=== PATIENT | female | born 2000 | race Caucasian/White ===

== ENCOUNTER 2021-08-25 16:15 | Emergency (ER) | payer OTHER, SELFPAY ==
[2021-08-25 16:22] VITALS: BP 127/80; PULSE 108; RESP 16; TEMP 36.7; O2SAT 98
--- NOTE | 2021-08-25 16:46 | ED.FEMALEGU ---
HPI - Female Genitourinary General Chief complaint: Urogenital-Female Stated complaint: UTI SYMPTOMS Time Seen by Provider: 08/25/21 16:38 Source: patient and RN notes reviewed Mode of arrival: ambulatory Limitations: no limitations History of Present Illness HPI Narrative: 21-year-old female presents to the [facility] with complaints of burning, frequency and low back pain. Patient states symptoms started Tuesday. Has been drinking cranberry juice and taking Tylenol. No relief. Denies fevers. Denies abdominal pain or chest pain MD elicited complaint: UTI Related Data Allergies Allergy/AdvReac Type Severity Reaction Status Date / Time kiwi Allergy Mild Unknown Verified 06/25/21 09:31 codeine Allergy Unknown Unknown Verified 06/25/21 09:31 Review of Systems Review of Systems: All systems reviewed & are unremarkable except as noted in HPI and below Constitutional: Constitutional: Reports no additional constitutional complaints Eyes: Eyes: Reports no additional eye complaints ENT: Reports system reviewed and no additional complaints, except as documented Cardiovascular: Cardiovascular: Reports no additional cardiovascular complaints Respiratory: Respiratory: Reports no additional respiratory complaints Gastrointestinal: Gastrointestinal: Reports no additional gastrointestinal complaints, Denies abdominal pain, Denies nausea and Denies vomiting Genitourinary: Genitourinary: Reports as per HPI, Reports dysuria and Denies urinary incontinence Musculoskeletal: Musculoskeletal: Reports no additional musculoskeletal complaints Integumentary/Breasts: Skin/Breast: Reports system reviewed and no additional complaints, except as docu Neurologic: Reports system reviewed and no additional complaints, except as documented Psychiatric: Psychiatric: Reports no additional psychiatric complaints Allergic/Immunologic: Allergic/Immunologic: Reports no additional allergic/immunologic complaints [facility] Past Medical History Medical History BMI 34.0-34.9,adult Family History Family History Other Carcinoma of colon Family history of coronary artery disease Hypertension Social History Social History Smoking status: Never smoker Alcohol intake: never Substance use: never Substance use type: does not use Additional living arrangements comments: parents Additional occupation/education comments: [employer] Gender identity (if verbalized by the patient): Female Spiritual care concerns: No Agree to blood products: Yes Comments At the time of my signature, I reviewed and agree with the nursing past medical, surgical, social, and family history. There is no relevant family history pertinent to the patient complaint. Exam Const: General: healthy appearing, no acute distress and alert Nutritional Appearance: well nourished Orientation/consciousness: patient oriented x3 Limitations: no limitations HENMT: Head: normal to inspection Ears: external ears normal Eyes: Pupils: Equal, round and reactive pupils present Neck: Neck: normal visual inspection, no lymphadenopathy and no meningeal signs Chest: Chest palpation & inspection: normal inspection of the chest Resp: Effort & Inspection: normal respiratory effort Auscultation: clear to auscultation bilaterally Cardio: Rate: regular rate Rhythm: regular rhythm GI: GI Palp: Yes Soft to palpation and No Tenderness to palpation present (GI) : General: Yes no CVA tenderness Back/Spine/Pelvis: Back: no CVA tenderness Skin: General skin exam: normal color Rashes: no rashes Wounds: no wounds Neuro: General: patient oriented x3, moves all extremities, no meningeal signs and no focal motor deficits Speech: normal speech Gait exam (Neuro): Normal gait present Extrem: General: normal to inspection
== END 2021-08-25 16:54 | disposition home or self-care (01) ==
PROVIDERS: Emergency Provider Nurse Practitioner; PCP Family Medicine
DX: N30.01 Acute cystitis with hematuria (principal)
CPT/HCPCS: 81003; 87077; 87086; 87088; 87186; 99213; G0463

== ENCOUNTER 2021-12-25 08:01 | Observation (INO) | payer OTHER, SELFPAY ==
[2021-12-25] VITALS (10 sets, daily range): BP systolic 106–142; BP diastolic 60–93; PULSE 87–127; RESP 12–21; TEMP 36.3–38.1; O2SAT 93–100; BMI 38.8
--- NOTE | ~2021-12-25 | XR_ITS ---
EXAMINATION: XR chest 2V EXAM DATE: 12/25/2021 08:38 INDICATION: midsternal chest pain, shortness of breath . TECHNIQUE: Frontal and lateral projections of the chest obtained and reviewed. There is no prior rehana dy for comparison. FINDINGS: The lungs are clear. There are no pleural effusions. The cardiomediastinal silhouette is within normal limits. There is no pneumothorax suspected. The bones and soft tissues are unremarkab le. IMPRESSION: No acute cardiopulmonary findings. Reviewed, dictated and finalized at location D.
--- NOTE | ~2021-12-25 | CT_ITS ---
EXAMINATION: CT abdomen pelvis wo con EXAM DATE: 12/25/2021 12:58 INDICATION: Abdominal pain. TECHNIQUE: Spiral CT of the abdomen and pelvis was performed without contrast. Axial, coronal and s agittal images of the abdomen and pelvis were reviewed. The dose-length product (DLP) for this exami nation was 1337.82 mGy-cm. The exposure was tailored according to patient size (auto mA exposure con trol), and iterative reconstruction (ASIR) was used as additional dose reduction technique. Correlati on is made to CT pulmonary scan earlier same date FINDINGS: The liver, spleen, adrenal glands and pancreas are unremarkable. Small calcified cholelith iasis, gallbladder otherwise unremarkable. No hydronephrosis. The uterus is unremarkable. The mick dder is distended but otherwise unremarkable. There is no retroperitoneal or pelvic lymphadenopathy. There are no findings to suggest appendicitis. The stomach and small bowel are unremarkable. There is expected amount of colonic stool. No free intraperitoneal gas. The heart is normal in size. T here are no pericardial or pleural effusions. The lung bases are unremarkable. The bones are unrema rkable. IMPRESSION: 1. No acute intra-abdominal findings. 2. Cholelithiasis. Reviewed, dictated and finalized at location B.
--- NOTE | ~2021-12-25 | US_ITS ---
EXAMINATION: US abdomen limited DATE: 12/25/2021 17:14 INDICATION: Right upper quadrant abdominal pain. TECHNIQUE: Multiple grayscale and Doppler ultrasound images of the abdomen were obtained. COMPARISON: CT abdomen and pelvis 12/25/2021 FINDINGS: The visualized portions of the head and body of the pancreas are normal. The liver is kemal l without focal lesion. There is normal flow in main portal vein. The gallbladder is normal in size a nd contains gallstones. No gallbladder wall thickening or sonographic Adams sign. The common duct is normal and measures 4 mm. IMPRESSION: 1. Cholelithiasis. No evidence of acute cholecystitis. Reviewed, dictated and finalized at location A.
--- NOTE | ~2021-12-25 | CT_ITS ---
EXAMINATION: CTA chest PE protocol EXAM DATE: 12/25/2021 11:18 INDICATION: Chest pain and dyspnea. TECHNIQUE: Spiral CTA of the chest (pulmonary arteries) was performed with 100 cc Omnipaque 350 intr avenous contrast injection. Images were acquired during the pulmonary arterial phase. Coronal maxi mum intensity projection 3D-reconstructions were created by the technologist on dedicated workstation . Axial, coronal and sagittal reformatted images were reviewed. The dose-length product (DLP) for t his examination was 590.82 mGy-cm. The exposure was tailored according to patient size (auto mA exp osure control), and iterative reconstruction (ASIR) was used as additional dose reduction technique. Correlation is made to chest x-ray same date. FINDINGS: Pulmonary arteries are well opacified and without intraluminal filling defects. No thora cic aortic dissection. Several small regions of subsegmental atelectasis. There are no pleural or p ericardial effusions. Tracheobronchial tree is patent. There is no mediastinal, hilar or axillary lymphadenopathy. There is no pneumothorax. Heart normal in size. No evidence of coronary arter ial calcification. Cholelithiasis, gallbladder otherwise unremarkable. The bones are unremarkable. IMPRESSION: 1. Some scattered opacities, appearance most consistent with subsegmental atelectasis. 2. No pulmonary emboli. 3. Cholelithiasis. Reviewed, dictated and finalized at location B. IMPRESSION: 1. Some scattered opacities, appearance most consistent with subsegmental atel ectasis. 2. No pulmonary emboli. 3. Cholelithiasis.
--- NOTE | 2021-12-25 08:08 | ECG_ITS ---
Measurements Intervals [place] Rate: 122 P: 52 MA: 174 QRS: 50 QRSD: 88 T: 32 QT: 308 QTc: 439 Interpretive Statements SINUS TACHYCARDIA NONSPECIFIC ST ABNORMALITY BORDERLINE ECG ECG NO PREVIOUS ECG AVAILABLE FOR COMPARISON Electronically Signed On 12-25-2021 17:14:17 CDT by Andrey Singh M.D.
--- NOTE | 2021-12-25 08:40 | ED.GENADULT ---
HPI - General Adult General Chief complaint: Chest Pain Stated complaint: dyspnea, chest pain Time Seen by Provider: 12/25/21 08:35 Source: RN notes reviewed History of Present Illness HPI narrative: Patient presents emergency department from home for chest pain. Patient states symptoms began upon waking this morning pain is located the midsternal chest and does not radiate described as a pressure associated with shortness of breath. She states that she does notice some mild feeling of lightheadedness with the symptoms she states nothing makes the pain better or worse she denies any fevers or chills cough, abdominal pain nausea vomiting or any other symptoms. Patient states she was recently on Macrobid for a urinary tract infection Related Data Home Medications Medication Instructions Recorded Confirmed norethindrone-e.estradiol-iron tablet 12/25/21 12/25/21 [Yolanda Fe 10/15 (28)] Allergies Allergy/AdvReac Type Severity Reaction Status Date / Time kiwi Allergy Mild Unknown Verified 12/25/21 16:49 codeine Allergy Unknown Unknown Verified 12/25/21 16:49 Review of Systems Review of Systems: Gen.: Denies fevers or chills ENT: Denies congestion Respiratory: Reports shortness of breath CV: Reports chest pain GI: Denies abdominal pain nausea, emesis or diarrhea Musculoskeletal: Denies back pain or muscle pain Neuro: Denies numbness, tingling, weakness or focal weakness Skin: Denies rash Except as documented, all other systems reviewed and negative [facility] Past Medical History Medical History (Updated 12/25/21 @ 17:49 by Bird Cedeño DO) Anxiety and depression BMI 34.0-34.9,adult Family History Family History Other Carcinoma of colon Family history of coronary artery disease Hypertension Social History Social History Smoking status: Never smoker Alcohol intake: never Substance use: never Substance use type: does not use Additional living arrangements comments: parents Additional occupation/education comments: [employer] school Gender identity (if verbalized by the patient): Female Spiritual care concerns: No Agree to blood products: Yes Exam Narrative: APPEARANCE: No acute distress, nontoxic, resting in bed EYES: EOMI HEENT: Normocephalic, atraumatic, OMM RESPIRATORY: No respiratory distress Clear to auscultation bilaterally with no rhonchi wheezing or rales. CARDIOVASCULAR: Tachycardic and regular without murmurs rubs or gallops. ABDOMINAL: Soft, nontender, nondistended, no rebound or guarding MUSCULOSKELETAl: Moves all extremities. No clubbing, cyanosis or edema. NEURO: Awake and alert. Following commands, speech normal, no focal deficits SKIN:: Warm, dry. No rashes lesions or abrasions PSYCHIATRIC: Normal affect/mood, Course Course Emergency Course: Discussed with patient her persistent tachycardia she states she does believe she has been having some mild tachycardia for a while reviewed old records and the patient was noted to be tachycardic back in July Patient developing fever repeat exam shows tenderness in the right upper quadrant concern with cholecystitis with elevated white blood cell count will admit at this time Discussed Dr. Mathias presentation work-up agrees with consult Cussed with DIRECTOR INFORMATION SECURITY Dara for Dr. Wong agrees with admission Discussed with patient and family results of workup and diagnosis. Discussed need for admission. Patient and family understand and agree to current treatment plan Vital Signs Vital signs: Vital Signs Temperature 97.3 F L 12/25/21 08:05 Pulse Rate 127 H 12/25/21 08:05 Respiratory Rate 18 12/25/21 08:05 Blood Pressure 142/93 H 12/25/21 08:05 Pulse Oximetry 100 12/25/21 08:05 Temperature 100.6 F H 12/25/21 15:41 Pulse Rate 106 H 12/25/21 16:01 Respiratory Rate 15 12/25/21 16:01 Blood Press
[2021-12-25 09:21] LABS: Basophils Absolute Auto 0.1 K/mm3 (0.0-0.1); Basophils Percent Auto 0.3 % (0.2-1.2); Eosinophils Absolute Auto 0.4 K/mm3 (0-0.3); Hematocrit 47.1 % (37.0-47.0); Hemoglobin 14.6 g/dL (12.0-15.0); Immature Granulocyte Absolute 0.08 K/mm3 (0.00-0.031); Immature Granulocyte Percent A 0.4 % (0-0.5); Lymphocytes Absolute Auto 1.11 K/mm3 (0.9-3.2); Mean Corpuscular Hemoglobin 29.5 pg (26-34); Mean Corpuscular Volume 95.2 fl (80-100); Mean Platelet Volume 10.8 fl (7.4-10.4); Monocytes Absolute Auto 0.8 K/mm3 (0.1-0.6); Monocytes Percent Auto 4.1 % (2.6-8.5); Neutrophils Percent Auto 87.2 % (45.5-73.1); Platelet Count Result 393 k/mm3 (150-375); Red Blood Count 4.95 M/mm3 (4.2-5.4); Red Cell Distribution Width 13.1 % (11.5-14.5); White Blood Count 18.4 K/mm3 (4.5-10.0)
[2021-12-25 10:23] LABS: Prothrombin Time 12.4 Seconds (11.1-14.7)
[2021-12-25 10:24] LABS: Partial Thromboplastin Time 36.2 SECONDS (22.3-36.8)
[2021-12-25 10:26] LABS: D Dimer 0.38 ug/mL (<0.48)
[2021-12-25 10:59] LABS: Alanine Aminotransferase 18 U/L (4-35); Albumin Level 4.3 g/dL (3.5-5.1); Alkaline Phosphatase 79 U/L (38-126); Anion Gap 6 mmol/L (8-16); Aspartate Amino Transferase 22 U/L (14-36); Bilirubin,Total 0.4 mg/dL (0.2-1.3); Blood Urea Nitrogen 11 mg/dL (7-17); Calcium 8.9 mg/dL (8.4-10.2); Carbon Dioxide 23 mmol/L (22-30); Chloride 106 mmol/L (98-107); Estimated CRCL calculation 138 ml/min; Estimated Glomerular Filt Rate > 60; Glucose 119 mg/dL (65-110); Lipase 65 U/L (23-300); Potassium 4.1 mmol/L (3.4-5.0); Sodium 135 mmol/L (137-145)
[2021-12-25 11:11] LABS: Troponin I < 0.012 ng/mL (0.000-0.034)
[2021-12-25] MEDS: SODIUM CHLORIDE 0.9% IV 1,000 ML 999 ML IV CONT ×2 (12:09→14:28)
[2021-12-25 12:34] LABS: Add Urine Microscopic? NO; Appearance Urine Clear (Clear); Bilirubin Urine Negative (Negative); Blood Urine Negative (Negative); Color Urine Straw (Yellow); Glucose Urine UA Negative (Negative); Ketones Urine Negative (Negative); Leukocyte Esterase Ur Negative LEU/UL (Negative); Nitrate Urine Negative (Negative); Protein Urine Negative (Negative); Urobilinogen Urine Negative mg/dL (<2.0)
[2021-12-25 12:38] LABS: Specific Grav Ur 1.003 (1.001-1.035)
[2021-12-25 12:51] LABS: Troponin I < 0.012 ng/mL (0.000-0.034)
[2021-12-25 13:48] LABS: Lactic Acid Reflex 1.1 mmol/L (0.7-2.1)
[2021-12-25] MEDS: KETOROLAC 30 MG/ML VIAL (*BKC) IV PUSH (15:16)
--- NOTE | 2021-12-25 16:47 | PC.NURSE ---
Pt to ultrasound
--- NOTE | 2021-12-25 17:37 | ADMGEN ---
This patient, Radha Ware, was admitted to [facility] Surg Room 312-01. Patient/family oriented to hospital policies and general routines including ID bracelet, bed and alarms, visiting hours, pain management, procedures, bathroom and other care routines, personal items, smoking policy, room service/diet, and visiting hours. Information on how to activate the Rapid Response Team has been discussed. Patient/Family are encouraged to report perceived risks to care and to ask questions if they do not understand what they are told or what they should do.
[2021-12-25] MEDS: SODIUM CHLORIDE 0.9% IV 1,000 ML 125 ML IV CONT (17:40)
[2021-12-25] MEDS: ACETAMINOPHEN 325 MG TABLET 650 MG PO (20:27)
--- NOTE | 2021-12-25 21:22 | PM.IMHP ---
H&P: HPI History of Present Illness Date/Time: Patient was placed observation status for expected length of stay less than 23 hours for management, will plan to re-evaluate tomorrow for improvement. 12/25/21 21:22 Chief Complaint: Chest pain Narrative: Ms. Ware is a 21-year-old female who presented emergency room with complaints of chest discomfort that started this morning. Patient states she woke up around 5:00 a.m. with chest discomfort that was across her anterior chest. Patient described that discomfort more as a pressure and she states she did have some shortness of breath. Patient states that nothing made the pain better or worse. Patient denies any fever or chills. Patient denies any nausea, vomiting, abdominal pain, constipation, diarrhea. Patient states she was recently diagnosed with the urinary tract infection and finished her full course of Macrobid. Patient denies any dysuria, hematuria, frequency, or urgency. Patient states she was feeling fine last evening. Patient states for dinner she did eat [employer] and had a large [place]ene[place]in garcia and mushroom and [place] burger. Patient states her only past medical history is depression and anxiety. Patient states she does vape on a regular basis and occasionally drinks alcohol. Review of Systems Review of Systems: A 12 point review of systems was completed patient all pertinent positive and negative per HPI the remainder are unremarkable. [facility] Past Medical History Medical History (Updated 12/25/21 @ 17:49 by Bird Cedeño DO) Anxiety and depression BMI 34.0-34.9,adult Family History Family History Other Carcinoma of colon Family history of coronary artery disease Hypertension Social History Social History Smoking status: Former smoker Tobacco type: cigarettes and e-cigarettes/vaping Second hand tobacco smoke exposure: No Alcohol intake: current Drinks per week: 1 Substance use: never Substance use type: does not use Additional living arrangements comments: parents Additional occupation/education comments: [employer] school Gender identity (if verbalized by the patient): Female Spiritual care concerns: No Agree to blood products: Yes Meds Home Medications and Allergies Home Medications Medication Instructions Recorded Confirmed Type sertraline 100 mg tablet 100 mg PO DAILY #90 tablet 08/07/21 12/25/21 Rx norethindrone-e.estradiol-iron 1 tablet PO DAILY 12/25/21 12/25/21 History [Yolanda Eva 10/15 (28)] Allergies Allergy/AdvReac Type Severity Reaction Status Date / Time kiwi Allergy Mild Unknown Verified 12/25/21 16:49 codeine Allergy Unknown Unknown Verified 12/25/21 16:49 Vital Signs Vital Signs - 24 hr 12/25/21 08:05 12/25/21 08:47 12/25/21 14:47 Temperature 36.3 C L Pulse Rate 127 H 127 H 114 H Respiratory Rate 18 20 18 Blood Pressure 142/93 H 132/92 H 114/65 Pulse Oximetry 100 100 97 12/25/21 15:00 12/25/21 15:41 12/25/21 15:43 Temperature 38.1 C H Pulse Rate 110 H 112 H 110 H Respiratory Rate 21 H 16 19 Blood Pressure 116/81 119/82 119/82 Pulse Oximetry 98 97 98 12/25/21 16:01 12/25/21 17:37 Temperature 37.6 C H Pulse Rate 106 H 98 Respiratory Rate 15 18 Blood Pressure 121/69 110/78 Pulse Oximetry 97 93 Exam Narrative: Constitutional: Patient is well-nourished in no acute distress. Patient is alert and oriented x3 HEENT: Moist mucous membranes. No scleral icterus. No lymphadenopathy. Neck: No carotid bruits noted no JVD noted Lungs: Lung sounds are clear to auscultation bilaterally. No accessory muscle use. No rhonchi, rales, or wheezes noted. Cardiovascular: Apical pulse is regular rate and rhythm. S1-S2 noted, no S3 or S4 noted. No gallops, murmurs, or rubs noted. Abdomen: Soft and round. Patient does have a positive Adams sign with deep palpation. N
[2021-12-26] VITALS: PULSE 89
[2021-12-26] MEDS: SODIUM CHLORIDE 0.9% IV 1,000 ML 125 ML IV CONT ×2 (00:25→08:52)
[2021-12-26 04:00] VITALS: PULSE 89
[2021-12-26 06:00] VITALS: BP 126/72; PULSE 92; RESP 16; TEMP 36.1; O2SAT 97
[2021-12-26 06:23] LABS: Basophils Percent Auto 0.2 % (0.2-1.2); Eosinophils Absolute Auto 0.4 K/mm3 (0-0.3); Eosinophils Percent Auto 3.8 % (0-4.4); Hematocrit 38.5 % (37.0-47.0); Hemoglobin 12.4 g/dL (12.0-15.0); Immature Granulocyte Absolute 0.05 K/mm3 (0.00-0.031); Immature Granulocyte Percent A 0.5 % (0-0.5); Lymphocytes Absolute Auto 1.16 K/mm3 (0.9-3.2); Lymphocytes Percent Auto 11.2 % (18.3-44.2); Mean Corpuscular HGB Conc 32.2 g/dl (32-36); Mean Corpuscular Hemoglobin 28.6 pg (26-34); Mean Corpuscular Volume 88.7 fl (80-100); Mean Platelet Volume 9.7 fl (7.4-10.4); Monocytes Absolute Auto 0.5 K/mm3 (0.1-0.6); Monocytes Percent Auto 4.3 % (2.6-8.5); Neutrophils Absolute Auto 8.3 K/mm3 (1.3-6.7); Platelet Count Result 308 k/mm3 (150-375); Red Blood Count 4.34 M/mm3 (4.2-5.4); Red Cell Distribution Width 12.7 % (11.5-14.5); White Blood Count 10.4 K/mm3 (4.5-10.0)
[2021-12-26 06:36] LABS: Alanine Aminotransferase 14 U/L (4-35); Albumin Level 3.6 g/dL (3.5-5.1); Alkaline Phosphatase 67 U/L (38-126); Anion Gap 6 mmol/L (8-16); Aspartate Amino Transferase 19 U/L (14-36); Bilirubin,Total 0.5 mg/dL (0.2-1.3); Blood Urea Nitrogen 7 mg/dL (7-17); Calcium 8.2 mg/dL (8.4-10.2); Carbon Dioxide 21 mmol/L (22-30); Chloride 111 mmol/L (98-107); Estimated CRCL calculation 141 ml/min; Estimated Glomerular Filt Rate > 60; Glucose 104 mg/dL (65-110); Potassium 3.8 mmol/L (3.4-5.0); Sodium 138 mmol/L (137-145)
[2021-12-26 08:00] VITALS: PULSE 90
[2021-12-26] MEDS: SERTRALINE HCL 50 MG TABLET 100 MG PO (08:50)
--- NOTE | 2021-12-26 10:42 | PM.IMPN ---
Progress Note: A&P Assessment and Plan (1) Acute cholecystitis: Code(s): K81.0 - Acute cholecystitis Status: Acute Assessment and Plan: Patient did undergo ultrasound that showed cholelithiasis with no evidence of acute cholecystitis. Monitor vital signs, I and O's, check stool output, neuro status and patient is a fall risk Monitor serum electrolytes and CBC Monitor lactic acid IV pain management Gentle IV fluid resuscitation Start Zosyn 3.375 mg every 6 hours Consult general surgery for further evaluation, appreciate assistance and recommendation Diet:NPO Dot cholecystitis (2) Sepsis: Code(s): A41.9 - Sepsis, unspecified organism Status: Acute Assessment and Plan: Patient initially did meet sepsis criteria upon admission with a T-max of 100.6? F, a white blood cell count of 18.4, and tachycardia. Patient did not meet severe sepsis criteria so she did not require 30 mL/kilogram of fluid. Patient's has remained afebrile and her pulse is now in the 90s. Blood cultures have been drawn. Patient is on antibiotic therapy. Will continue monitor patient closely. Subjective Date/time seen: 12/26/21 10:42 Patient is alert and oriented this morning. She is in minimal amount of pain. Leukocytosis decrease. Patient continues to receive IV Zosyn. General surgery on board for cholecystitis. Family at bedside and educated. Continue with pain management and antibiotics. Review of Systems Review of Systems: All systems reviewed & are unremarkable except as noted in HPI and below Exam Narrative: General: No acute distress. Morbidly obese Mental Status: Awake, alert and oriented to person, place, and time with clear speech. Skin: Skin in warm, dry and intact without rashes or lesions. Head: Normocephalic and atraumatic. Eyes: Conjunctivae are clear without exudates or hemorrhage. Sclera is non-icteric. EOM are intact, PERRLA. Ears: The external ear and canal are non-tender and without swelling or discharge. Nose: Nasal mucosa is pink and moist. Septum midline. Nares patent bilaterally. Throat: Oral mucosa pink and moist with good dentition. Tongue midline. Neck: The neck supple without adenopathy. Trachea midline. No JVD. Cardiac: S1 and S2 regular rate and rhythm. No murmurs, gallops, or rubs auscultated. Respiratory: Chest wall symmetric, nontender and without deformity or trauma. Respirations even and unlabored. Lung sounds are clear to auscultation in all lobes bilaterally without wheezes, rhonchi, or rales. Abdominal: Abdomen soft, round and non-tender to palpation. Bowel sounds present and normoactive in all 4 quadrants. Spine: Neck and back with grossly normal curvature, no deformity in appearance or signs of trauma. Extremities: Upper and lower extremities atraumatic without tenderness or deformity. Full range of motion and muscle strength 5/5 to all extremities bilaterally. Neurological: Full and symmetric motor and light touch sensation bilaterally. Cranial nerves II-XII grossly intact. Objective Data Vital Signs Vital Signs: Vital Signs - 24 hr 12/25/21 14:47 12/25/21 15:00 12/25/21 15:41 Temperature 100.6 F H Pulse Rate 114 H 110 H 112 H Respiratory Rate 18 21 H 16 Blood Pressure 114/65 116/81 119/82 Pulse Oximetry 97 98 97 12/25/21 15:43 12/25/21 16:01 12/25/21 17:37 Temperature 99.7 F H Pulse Rate 110 H 106 H 98 Respiratory Rate 19 15 18 Blood Pressure 119/82 121/69 110/78 Pulse Oximetry 98 97 93 12/25/21 20:00 12/25/21 22:00 12/26/21 00:00 Temperature 97.6 F Pulse Rate 93 87 89 Respiratory Rate 12 Blood Pressure 106/60 Pulse Oximetry 97 12/26/21 04:00 12/26/21 06:00 12/26/21 08:00 Temperature 97.0 F L Pulse Rate 89 92 90 Respiratory Rate 16 Blood Pressure 126/72 Pulse Oximetry 97 Intake/Output Intake/Output: Intake & Output 12/23/21 12/24/21 12/25/21 12/26/21 23:59 23:59 23:59 23:59 Intake Total 2150 2100 Balance
[2021-12-26 11:00] VITALS: O2SAT 97
--- NOTE | 2021-12-26 11:41 | PM.CNGS ---
Assessment and Plan Assessment and plan (1) Acute cholecystitis: Code(s): K81.0 - Acute cholecystitis Status: Acute Assessment and Plan: exam benign today, rian clears, will start low fat diet, if rian ok to dc with plans for interval cholecystectomy as outpt, cont po abx for additional 5 days (2) BMI 34.0-34.9,adult: Code(s): Z68.34 - Body mass index [BMI] 34.0-34.9, adult Status: Acute Assessment and Plan: lifestyle and dietary modifications History of Present Illness Consult details Consult date: 12/26/21 Reason for consult: gallstones Requesting physician: Bobby Wong MD Narrative: The patient is a 21-year-old female presenting to the emergency department complaining of severe epigastric abdominal pain with radiation to her chest. The patient reports this pain was associated with nausea, bloating, shortness of breath. The patient reports this episode awoke her from sleep yesterday morning. The patient denies any previous episodes. The patient reports she had [place] the night before. The patient does report occasional symptoms of bloating after eating. Review of Systems Constitutional: Constitutional: Reports anorexia, Denies chills, Denies fatigue, Denies fever(s), Denies increased appetite, Denies lethargy, Reports poor appetite, Denies weakness, Denies weight gain and Denies weight loss Eyes: Eyes: Reports no additional eye complaints ENT: Reports system reviewed and no additional complaints, except as documented Cardiovascular: Cardiovascular: Reports no additional cardiovascular complaints Respiratory: Respiratory: Reports dyspnea Gastrointestinal: Gastrointestinal: Reports as per HPI, Reports abdominal pain, Denies belching, Reports bloating, Reports GI cramping, Reports early satiety, Denies loose stools, Reports nausea and Denies vomiting Genitourinary: Genitourinary: Reports no additional female genitourinary complaints Musculoskeletal: Musculoskeletal: Reports no additional musculoskeletal complaints Integumentary/Breasts: Skin/Breast: Reports system reviewed and no additional complaints, except as docu Neurologic: Reports system reviewed and no additional complaints, except as documented Psychiatric: Psychiatric: Reports no additional psychiatric complaints Endocrine: Endocrine: Reports no additional endocrine complaints Hematologic/Lymphatic: Hematologic/Lymphatic: Reports no additional hematologic/lymphatic complaints Allergic/Immunologic: Allergic/Immunologic: Reports no additional allergic/immunologic complaints PMFSH Past Medical History Medical History Anxiety and depression BMI 34.0-34.9,adult Family History Family History Other Carcinoma of colon Family history of coronary artery disease Hypertension Social History Social History Smoking status: Former smoker Tobacco type: cigarettes and e-cigarettes/vaping Second hand tobacco smoke exposure: No Alcohol intake: current Drinks per week: 1 Substance use: never Substance use type: does not use Additional living arrangements comments: parents Additional occupation/education comments: [employer] Gender identity (if verbalized by the patient): Female Spiritual care concerns: No Agree to blood products: Yes Meds Home Medications and Allergies Home Medications Medication Instructions Recorded Confirmed Type sertraline 100 mg tablet 100 mg PO DAILY #90 tablet 08/07/21 12/25/21 Rx norethindrone-e.estradiol-iron 1 tablet PO DAILY 12/25/21 12/25/21 History [Yolanda Velasquez 10/15 (28)] Allergies Allergy/AdvReac Type Severity Reaction Status Date / Time kiwi Allergy Mild Unknown Verified 12/25/21 16:49 codeine Allergy Unknown Unknown Verified 12/25/21 16:49 Vital Signs Vital Signs - 24 hr
[2021-12-26 12:00] VITALS: PULSE 97
--- NOTE | 2021-12-26 12:57 | PM.DS ---
DS: Admitting Diagnosis Discharge Date 12/26/21 Admitting Diagnosis Acute cholecystitis Body mass index [BMI] 34.0-34.9, adult DS: Discharge Diagnosis Discharge Diagnosis (1) Acute cholecystitis: Code(s): K81.0 - Acute cholecystitis Status: Acute Assessment and Plan: Patient did undergo ultrasound that showed cholelithiasis with no evidence of acute cholecystitis. Monitor vital signs, I and O's, check stool output, neuro status and patient is a fall risk Monitor serum electrolytes and CBC Monitor lactic acid IV pain management Gentle IV fluid resuscitation Start Zosyn 3.375 mg every 6 hours Consult general surgery for further evaluation, appreciate assistance and recommendation Diet:NPO Dot cholecystitis (2) Sepsis: Code(s): A41.9 - Sepsis, unspecified organism Status: Acute Assessment and Plan: Patient initially did meet sepsis criteria upon admission with a T-max of 100.6? F, a white blood cell count of 18.4, and tachycardia. Patient did not meet severe sepsis criteria so she did not require 30 mL/kilogram of fluid. Patient's has remained afebrile and her pulse is now in the 90s. Blood cultures have been drawn. Patient is on antibiotic therapy. Will continue monitor patient closely. DS: Summary Hospital Course Hospital Course: Ms. Ware is a 21-year-old female who presented emergency room with complaints of chest discomfort that started this morning. Patient states she woke up around 5:00 a.m. with chest discomfort that was across her anterior chest. Patient described that discomfort more as a pressure and she states she did have some shortness of breath. Patient states that nothing made the pain better or worse. Patient denies any fever or chills. Patient denies any nausea, vomiting, abdominal pain, constipation, diarrhea. Patient states she was recently diagnosed with the urinary tract infection and finished her full course of Macrobid. Patient denies any dysuria, hematuria, frequency, or urgency. Patient states she was feeling fine last evening. Patient states for dinner she did eat [employer] and had a large Monegasque garcia and mushroom and [employer]eless burger. Patient states her only past medical history is depression and anxiety. Patient states she does vape on a regular basis and occasionally drinks alcohol. Patient was admitted for acute cholecystitis and treated with IV Zosyn Q 6 hours and General surgery was consulted for further evaluation. The following day the patient was able to tolerate oral intake, WBC significantly decreased and she was transitioned to oral ciprofloxacin for which will be continued for approximately 5 days. She will follow-up with her PCP within 2 weeks. She is educated on dietary modifications. Status at Discharge Functional status at discharge: independent ambulation Overall status at discharge: patient is back to baseline Time Spent with Patient Time attestation: Total time spent providing and/or coordinating discharge services: Time spent: Less than 30 minutes Exam Narrative: General: No acute distress. Morbidly obese Mental Status: Awake, alert and oriented to person, place, and time with clear speech. Skin: Skin in warm, dry and intact without rashes or lesions. Head: Normocephalic and atraumatic. Eyes: Conjunctivae are clear without exudates or hemorrhage. Sclera is non-icteric. EOM are intact, PERRLA. Ears: The external ear and canal are non-tender and without swelling or discharge. Nose: Nasal mucosa is pink and moist. Septum midline. Nares patent bilaterally. Throat: Oral mucosa pink and moist with good dentition. Tongue midline. Neck: The neck supple without adenopathy. Trachea midline. No JVD. Cardiac: S1 and S2 regular rate and rhythm. No murmurs, gallops, or rubs auscultated. Respiratory: Chest wall symmetric, nontender and without deformity or trauma. Respirations even and unlabored. Lung sounds are clear to auscultation in all lobes bilaterall
== END 2021-12-26 13:45 | disposition home or self-care (01) ==
LOC: ANHED 08:51 → ANH3MEDSUR 16:52
PROVIDERS: Admitting Provider Family Medicine; Emergency Provider Emergency Medicine; PCP Family Medicine; Visit Provider Family Medicine
DX: A41.9 Sepsis, unspecified organism (principal); K80.00 Calculus of gallbladder with acute cholecystitis without obstruction; R00.0 Tachycardia, unspecified; F17.290 Nicotine dependence, other tobacco product, uncomplicated; F32.A Depression, unspecified; F41.9 Anxiety disorder, unspecified; Z80.0 Family history of malignant neoplasm of digestive organs
CPT/HCPCS: 36415; 71046; 71275; 74176; 76705; 80053; 81003; 81025; 83605; 83690; 84484; 85025; 85380; 85610; 85730; 87040; 93005; 96361; 96365; 96366; 96367; 96375; 96376; 99285; A9270; G0378; J0131; J1885; J2543; J7030; Q9967

== ENCOUNTER 2021-12-31 02:14 | Day surgery (SDC) | payer OTHER, SELFPAY ==
[2021-12-30 11:57] VITALS: BMI 37.5
--- NOTE | 2021-12-30 12:07 | PC.NURSE ---
Report to the Outpatient Waiting Room, entrance under the green pavilion located off [facility], at time 1230 on date 12/31/21. OR Time: 1430. - You and your visitor will be asked a series of questions to screen for COVID 19 for your protection. - A mask is required within the hospital. One visitor will be allowed to accompany the patient into the hospital. Patients visitor will be instructed to remain with patient at all times or leave the building. We will allow the visitor to come back to the postoperative area when patient is ready. Preoperative COVID Testing Requirements: No COVID Test needed if: (proof is required; if not received patient will have Rapid Test prior to entry) - Patient has received COVID Vaccine at least 14 days prior to procedure date or - Patient has positive COVID test result within last 90 days of surgery date. COVID Test needed if above criteria is not met Patients may have clear liquids (water, carbonated beverages, clear teas, apple juice) until 3 hours prior to surgery with a maximum of 20 ounces. - No food from midnight until time of surgery Take the following medications with a SIP of water the morning of surgery: CIPRO, SERTRALINE Medications to discontinue per physician: N/A Date to take last dose: N/A Please no make-up, nail indonesian, hairspray, perfume, deodorant, or body powder the day of surgery. No jewelry (including any body piercings) or valuables the day of surgery, leave them at home. Please take a shower or bath the night before, or the morning of, surgery with an antibacterial soap. Wear comfortable, loose fitting clothing. HIBICLENS SHOWER - Jewelry must be removed prior to entering the operating room. Rings and piercings that are not removed may be cut off. - The hospital will not accept responsibility for valuables. - Please leave all valuables, including medications, at home the day of surgery. If you are going home after surgery, a licensed medical delivery driver must drive you home. - NO public transportation without another adult. - We recommend that an adult stay with you for 24 hours following discharge. - We also recommend that you do not drive, make important decision, drink alcoholic beverages, or take any drugs that were not prescribed by your health care provider for at least 24 hours after your discharge time. Follow any additional instructions given to you from your surgeon. Telephone instructions given to CATY GO and asked if any additional questions and then verbalized understanding. Patient advised to call surgeon office or pre surgery nurse liaison [phone] if any additional questions.
[2021-12-31] VITALS (8 sets, daily range): BP systolic 107–133; BP diastolic 52–93; PULSE 68–106; RESP 10–20; TEMP 36.3–36.6; O2SAT 100
[2021-12-31] MEDS: ACETAMINOPHEN 500 MG TABLET 1000 MG PO (13:08)
[2021-12-31] MEDS: LACTATED RINGERS 1,000 ML 30 ML IV CONT ×2 (13:25→15:07)
[2021-12-31 13:39] LABS: Amylase 83 U/L (30-110)
--- NOTE | 2021-12-31 13:52 | WPDANESEPPF ---
Anes - Initial Pre Proc Eval Procedure: Operation Date: 12/31/21 14:30 Proposed Procedures p Laparoscopic Cholecystectomy - Yazmin Mathias MD Date/Time: 12/31/21 13:52 Surgeon: Yazmin Mathias MD Pre Op Diagnosis: acute cholecystitis Patient Data Age: 21 Gender: F Height: 1.7 m Weight: 111.5 kg Last Vital Signs Temp 36.3 C L 12/31/21 13:40 Pulse 91 12/31/21 13:40 Resp 16 12/31/21 13:40 BP 120/78 12/31/21 13:40 Pulse Ox 100 12/31/21 13:40 Allergies Allergy/AdvReac Type Severity Reaction Status Date / Time kiwi Allergy Mild Anaphylaxis Verified 12/31/21 12:50 codeine Allergy Unknown Rash Verified 12/31/21 12:50 Home Medications Medication Instructions Recorded Confirmed Type sertraline 100 mg tablet 100 mg PO DAILY #90 tablet 08/07/21 12/31/21 Rx norethindrone-e.estradiol-iron 1 tablet PO HS 12/25/21 12/30/21 History [Yolanda Velasquez 10/15 (28)] ciprofloxacin HCl [Cipro] 500 mg PO Q12H 5 Days #10 tablet 12/26/21 12/31/21 Rx Laboratory Tests 12/31/21 13:14 Amylase 83 U/L U/L (30-110) Patient hx anesthesia problems: none Family hx anesthesia problems: none Results Review: All pre-operative results and documents have been reviewed as part of the pre-operative evaluation. [facility] Past Medical History Medical History Anxiety and depression BMI 34.0-34.9,adult Surgical History Surgical History (Updated 12/31/21 @ 13:53 by Sean Mora MD) H/O myringotomy H/O wisdom tooth extraction Hx of tonsillectomy Family History Family History Other Carcinoma of colon Family history of coronary artery disease Hypertension Social History Social History Years smoked: 1 Smoking status: Former smoker Tobacco type: cigarettes and e-cigarettes/vaping Second hand tobacco smoke exposure: No Smoking end date: 08/26/20 Additional smoking assessment comments: STOPPED VAPING AUG 2021 Alcohol intake: current Drinks per week: 1 Substance use: never Substance use type: does not use Living arrangements: with family Additional living arrangements comments: parents Additional occupation/education comments: [employer] school Gender identity (if verbalized by the patient): Female Spiritual care concerns: No Agree to blood products: Yes Anes - Eval Final PreProcedure Day of Procedure 12/31/21 13:52 Patient weight: obese Heart: regular rate and rhythm Lungs: clear to auscultation Airway: Mallampati scale class II Neurological: alert and oriented Last oral intake: >/= 8 hours ASA classification: II Emergent: no Anesthetic plan: proceed Anesthesia type and monitoring: general ETT and standard monitoring Results Review: All pre-operative results and documents have been reviewed as part of the pre-operative evaluation. Informed Consent: The patient's anesthetic plan and its attendant risks and benefits were discussed with the patient/family/POA. Questions were solicited and answers provided to the satisfaction of the patient/family/POA.
[2021-12-31] MEDS: KETOROLAC 15 MG/ML VIAL (*BKC) IV PUSH (13:54)
--- NOTE | 2021-12-31 14:16 | WPDHPUPDATE1 ---
History and Physical Update Update Date/Time: 12/31/21 14:16 History and Physical has been reviewed, including an updated exam of the patient. There are NO changes in the patient's condition. Risks, benefits, and alternatives have been discussed and questions answered. Patient agrees to proceed with procedure.
[2021-12-31] MEDS: ceFAZolin 2 GM/D5W 50 ML 2 GM/50 ML BAG IVPB (14:22)
--- NOTE | 2021-12-31 14:34 | WPDANESEPPF ---
Anes - Initial Pre Proc Eval Procedure: Operation Date: 12/31/21 14:30 Proposed Procedures p Laparoscopic Cholecystectomy - Yazmin Mathias MD Date/Time: 12/31/21 14:34 Surgeon: Yazmin Mathias MD Pre Op Diagnosis: acute cholecystitis Patient Data Age: 21 Gender: F Height: 1.7 m Weight: 111.5 kg Last Vital Signs Temp 36.3 C L 12/31/21 13:40 Pulse 91 12/31/21 13:40 Resp 16 12/31/21 13:40 BP 120/78 12/31/21 13:40 Pulse Ox 100 12/31/21 13:40 Allergies Allergy/AdvReac Type Severity Reaction Status Date / Time kiwi Allergy Mild Anaphylaxis Verified 12/31/21 12:50 codeine Allergy Unknown Rash Verified 12/31/21 12:50 Home Medications Medication Instructions Recorded Confirmed Type sertraline 100 mg tablet 100 mg PO DAILY #90 tablet 08/07/21 12/31/21 Rx norethindrone-e.estradiol-iron 1 tablet PO HS 12/25/21 12/30/21 History [Yolanda Velasquez 10/15 ()] ciprofloxacin HCl [Cipro] 500 mg PO Q12H 5 Days #10 tablet 12/26/21 12/31/21 Rx Laboratory Tests 12/31/21 12/31/21 13:14 13:14 Amylase 83 U/L U/L (30-110) Blood Type O Positive Antibody Screen Negative Patient hx anesthesia problems: none Family hx anesthesia problems: none Results Review: All pre-operative results and documents have been reviewed as part of the pre-operative evaluation. [facility] Past Medical History Medical History Anxiety and depression BMI 34.0-34.9,adult Surgical History Surgical History H/O myringotomy H/O wisdom tooth extraction Hx of tonsillectomy Family History Family History Other Carcinoma of colon Family history of coronary artery disease Hypertension Social History Social History Years smoked: 1 Smoking status: Former smoker Tobacco type: cigarettes and e-cigarettes/vaping Second hand tobacco smoke exposure: No Smoking end date: 08/26/20 Additional smoking assessment comments: STOPPED VAPING AUG 2021 Alcohol intake: current Drinks per week: 1 Substance use: never Substance use type: does not use Living arrangements: with family Additional living arrangements comments: parents Additional occupation/education comments: [employer] school Gender identity (if verbalized by the patient): Female Spiritual care concerns: No Agree to blood products: Yes Anes - Eval Final PreProcedure Day of Procedure 12/31/21 14:34 Patient weight: obese Heart: regular rate and rhythm Lungs: clear to auscultation Airway: Mallampati scale class II Neurological: alert and oriented Last oral intake: >/= 8 hours ASA classification: II Emergent: yes Anesthetic plan: proceed Anesthesia type and monitoring: general ETT and standard monitoring Results Review: All pre-operative results and documents have been reviewed as part of the pre-operative evaluation. Informed Consent: The patient's anesthetic plan and its attendant risks and benefits were discussed with the patient/family/POA. Questions were solicited and answers provided to the satisfaction of the patient/family/POA.
[2021-12-31] MEDS: fentaNYL CITRATE INJ (*CRX) 100 MCG/2 ML VIAL 25 MCG IV PUSH ×8 (15:12→15:47)
--- NOTE | 2021-12-31 15:15 | P.OP_ITS ---
Procedure Note - Detailed Date of Procedure 12/31/21 Pre-op Diagnosis acute cholecystitis Post-op Diagnosis Same Procedure Performed Laparoscopic cholecystectomy Surgeon Yazmin Mathias MD Anesthesia General Indications 21 y/o F presenting to ED with acute cholecystitis Findings moderate GB inflammation, distension Description of Procedure The patient was taken to the operating room placed in the supine position. After adequate induction of general anesthesia, the patient was prepped and draped in normal sterile fashion. A time-out was then performed to verify the patient's identity as well as the procedure being performed. I then made a 5 mm incision in the infraumbilical region. Through this, a Veress needle was placed into the peritoneal cavity and CO2 gas was then insufflated. After adequate p neumoperitoneum was achieved, the Veress needle was removed and a 5 mm optiview trocar was placed through this incision under direct visualization. I then placed the laparoscope through this trocar site and under direct visualization placed a further 12 mm subxiphoid port as well as 2 additional 5 mm ports in the right upper abdomen. The gallbladder was then identified and was noted to be moderately inflamed, distended. I was able to place a grasper at the dome of the gallbladder and this was retracted anterior and cephalad up over the liver. A 2nd retractor was then placed at the infundibulum and retracted laterally, this allowed visualization of the triangle of Calot. I then was able to visualize the cystic duct in its entirety from its proximal insertion into the gallbladder, to its distal junction with the common hepatic/common bile duct junction. At this point, I carefully skeletonized the proximal cystic duct with the Maryland dissector. I then clipped and transected the proximal cystic duct. Next I visualized the cystic artery. Again the artery was skeletonized, clipped, and transected. I then used the Bovie cautery to take down the peritoneal attachments of the gallbladder off the liver bed. This was somewhat difficult given the amount of inflammation in the posterior space. Once the gallbladder specimen was completely detached, an endo-pouch was placed through the 12 mm port site. I then placed the gallbladder specimen into the Endo pouch and removed the endo-pouch from the 12 mm port site. The specimen will now be sent to pathology for further review. I then copiously irrigated the right upper quadrant. Some mild oozing was noted in the liver bed and this was controlled with the bovie cautery. Hemostasis was noted in the liver bed, the clips were noted to be in good position on both the cystic duct stump and the cystic artery stump. No other pathology was noted in the right upper quadrant. I then moved the laparoscope to the subxiphoid port. No iatrogenic injury or other pathology was noted in the lower abdomen. I then closed the 12 mm trocar site under direct visualization using the Morgan cone and 0 Vicryl suture. At this point, the abdomen was desufflated and all ports removed. All port sites were then closed with 4.O Monocryl subcuticular sutures. Dermabond was placed on each incision. The patient tolerated the procedure well, was extubated in the operating room postoperative and will be transferred to the recovery room in stable condition Estimated Blood Loss 10 Drains No Packing No Pathology Yes Complications No immediate complications Condition Stable Disposition PACU
[2021-12-31] MEDS: oxyCODONE HCL (*CRX) 5 MG TAB IR PO (16:22)
== END 2021-12-31 17:10 | disposition home or self-care (01) ==
PROVIDERS: PCP Family Medicine; Visit Provider Surgery
PROC: 0FT44ZZ Resection of Gallbladder, Percutaneous Endoscopic Approach (ICD-10-PCS; CPT 47562; principal; 2021-12-31 14:30)
DX: K80.10 Calculus of gallbladder with chronic cholecystitis without obstruction (principal); F41.8 Other specified anxiety disorders; Z87.891 Personal history of nicotine dependence; E66.9 Obesity, unspecified; Z68.38 Body mass index [BMI] 38.0-38.9, adult
CPT/HCPCS: 47562; 36415; 82150; 86850; 86900; 86901; 88304; A9270; J0690; J1100; J1885; J2250; J2405; J2704; J2710; J3010; J7030; J7120

== ENCOUNTER 2022-05-16 10:46 | Emergency (ER) | payer OTHER, SELFPAY ==
[2022-05-16 10:53] VITALS: BP 114/73; PULSE 79; RESP 20; TEMP 36.6; O2SAT 100
--- NOTE | 2022-05-16 11:06 | ED.FEMALEGU ---
HPI - Female Genitourinary General Chief complaint: Urogenital-Female Stated complaint: uti Time Seen by Provider: 05/16/22 11:17 Source: patient and RN notes reviewed Mode of arrival: ambulatory Limitations: no limitations History of Present Illness HPI Narrative: 21-year-old female presents with concern for urinary tract infection. Reports symptoms started yesterday. Reports a history of urinary tract infections. She reports dysuria, odorous urine, low back pain, suprapubic She denies fever, body aches, chills, sweats, abdominal pain, nausea or vomiting. Reports she took Azo at 11:00 last night MD elicited complaint: UTI Related Data Home Medications Medication Instructions Recorded Confirmed norethindrone 1 mg-ethinyl 1 tablet PO HS 12/25/21 01/19/22 estradiol 20 mcg (21)-iron 75 mg (7) tablet (Yolanda Fe 10/15 (28)) Allergies Allergy/AdvReac Type Severity Reaction Status Date / Time kiwi Allergy Mild Anaphylaxis Verified 01/18/22 13:39 codeine Allergy Unknown Rash Verified 01/18/22 13:39 Review of Systems Review of Systems: CONSTITUTIONAL: Denies malaise, chills, sweats, or fever. CARDIOVASCULAR: Denies chest pain, palpitations, or edema. RESPIRATORY: Denies cough or dyspnea. GASTROINTESTINAL: Denies abdominal pain, nausea, vomiting, diarrhea GENITOURINARY: Reports dysuria, frequency, suprapubic pressure. Denies flank pain or hematuria. SKIN: Denies rash or itching. MUSCULOSKELETAL: Reports bilateral low back pain. Denies myalgia. All systems reviewed & are unremarkable except as noted in HPI and below PMFSH Past Medical History Medical History (Updated 05/16/22 @ 11:20 by Estephania Macedo NP) Anxiety and depression BMI 34.0-34.9,adult Surgical History Surgical History (Updated 01/18/22 @ 13:40 by Andreas Good MA) H/O myringotomy H/O wisdom tooth extraction Hx laparoscopic cholecystectomy 12/30/21 Hx of tonsillectomy Family History Family History Other Carcinoma of colon Family history of coronary artery disease Hypertension Social History Social History Years smoked: 1 Smoking status: Former smoker Tobacco type: cigarettes and e-cigarettes/vaping Second hand tobacco smoke exposure: No Smoking end date: 08/26/20 Additional smoking assessment comments: STOPPED VAPING AUG 2021 Alcohol intake: current Drinks per week: 1 Substance use: never Substance use type: does not use Additional living arrangements comments: parents Additional occupation/education comments: [employer] school Gender identity (if verbalized by the patient): Female Sexual Orientation (if Verbalized by the Patient): Straight or Heterosexual Spiritual care concerns: No Agree to blood products: Yes Comments At time of signature, agree with nursing past medical, surgical, social and family history. There is no relevant family history pertinent to the presenting complaint Exam Narrative: GENERAL: Well-appearing, well-nourished, and in no acute distress. HEAD: Normocephalic. EYES: PERRLA, conjunctivae clear. NECK: Supple. No lymphadenopathy CHEST: Clear to auscultation. No respiratory distress. HEART: Regular rate and rhythm. ABDOMEN: Soft, nontender upon palpation, nondistended, normal active bowel sounds, no palpable or pulsatile masses, no guarding. No CVA tenderness SKIN: Warm, dry, no rash. NEURO: Alert and oriented x3. PSYCH: Normal mood and affect Course Course Emergency Course: Patient is aware of diagnosis, understands and agrees to treatment plan. Anticipatory guidance given. Patient agrees to follow-up as directed and is aware of reasons to seek care at the emergency department. Portions of this record may have been created with voice recognition software Level of Care: Express Care Visit Vital Signs Vital signs: Vital Signs Temperat
== END 2022-05-16 11:26 | disposition home or self-care (01) ==
PROVIDERS: Emergency Provider Nurse Practitioner; PCP Family Medicine
DX: R30.0 Dysuria (principal); M54.50 Low back pain, unspecified; R10.30 Lower abdominal pain, unspecified; R35.0 Frequency of micturition
CPT/HCPCS: 81003; 87077; 87086; 87186; 99213; G0463

== ENCOUNTER 2022-10-16 08:56 | Emergency (ER) | payer OTHER, SELFPAY ==
--- NOTE | 2022-10-16 08:59 | ED.FEMALEGU ---
HPI - Female Genitourinary General Chief complaint: Urogenital-Female Stated complaint: Urinary Problem Time Seen by Provider: 10/16/22 09:14 Source: patient and RN notes reviewed Mode of arrival: ambulatory Limitations: no limitations History of Present Illness HPI Narrative: 22-year-old concern for urine frequency, urgency, dysuria, suprapubic pressure that started last night. She reports a history of urinary tract infections. She denies fever, aches, chills nausea vomiting, abdominal pain, back pain MD elicited complaint: UTI Related Data Home Medications Medication Instructions Recorded Confirmed levonorgestrel-ethinyl estradiol 1 tablet PO DAILY 10/16/22 10/16/22 0.1 mg-20 mcg tablet (Falmina (28)) Allergies Allergy/AdvReac Type Severity Reaction Status Date / Time kiwi Allergy Mild Anaphylaxis Verified 10/16/22 09:09 codeine Allergy Unknown Rash Verified 10/16/22 09:09 Review of Systems Review of Systems: CONSTITUTIONAL: Denies malaise, chills, sweats, or fever. CARDIOVASCULAR: Denies chest pain, palpitations, or edema. RESPIRATORY: Denies cough or dyspnea. GASTROINTESTINAL: Denies abdominal pain, nausea, vomiting, diarrhea GENITOURINARY: Reports dysuria, frequency, urgency, suprapubic pressure. Denies flank pain or hematuria. SKIN: Denies rash or itching. MUSCULOSKELETAL: Denies back pain or myalgia. All systems reviewed & are unremarkable except as noted in HPI and below PMFSH Past Medical History Medical History Anxiety and depression BMI 34.0-34.9,adult BMI greater than 40 Surgical History Surgical History H/O myringotomy H/O wisdom tooth extraction Hx laparoscopic cholecystectomy 12/30/21 Hx of tonsillectomy Family History Family History Father No problems noted. Mother PCOS (polycystic ovarian syndrome) Multiple sclerosis Sibling No problems noted. Other Carcinoma of colon Family history of coronary artery disease Hypertension Social History Social History Years smoked: 1 Smoking status: Former smoker Tobacco type: cigarettes and e-cigarettes/vaping Second hand tobacco smoke exposure: No Smoking end date: 08/26/20 Additional smoking assessment comments: STOPPED VAPING AUG 2021 Alcohol intake: current Drinks per week: 1 Substance use: never Substance use type: does not use Lack of Transportation: No Lack of Food: Never True Current Housing: I Have Housing Concerned About Future Housing: No Difficulty Paying Gas/Electric Bills: No Difficulty Paying for Meds: No Currently Unemployed: No Education: Associate Degree Difficulty w/ Childcare or Family Care: No Living arrangements: with family Additional living arrangements comments: parents Occupation/Education: occupation Additional occupation/education comments: [employer] Gender identity (if verbalized by the patient): Female Sexual Orientation (if Verbalized by the Patient): Straight or Heterosexual Spiritual care concerns: No Agree to blood products: Yes Comments At time of signature, agree with nursing past medical, surgical, social and family history. There is no relevant family history pertinent to the presenting complaint Exam Narrative: GENERAL: Well-appearing, well-nourished, and in no acute distress. HEAD: Normocephalic. EYES: PERRLA, conjunctivae clear. NECK: Supple. No lymphadenopathy CHEST: Clear to auscultation. No respiratory distress. HEART: Regular rate and rhythm. ABDOMEN: Soft, nontender upon palpation, nondistended, normal active bowel sounds, no palpable or pulsatile masses, no guarding. No CVA tenderness SKIN: Warm, dry, no rash. NEURO: Alert and oriented x3. PSYCH: Normal mood and affect Co
[2022-10-16 09:03] VITALS: BP 130/75; PULSE 79; RESP 16; TEMP 36.7; O2SAT 100
== END 2022-10-16 09:21 | disposition home or self-care (01) ==
PROVIDERS: Emergency Provider Nurse Practitioner; PCP Family Medicine
DX: R35.0 Frequency of micturition (principal); R30.0 Dysuria; R39.15 Urgency of urination; R10.30 Lower abdominal pain, unspecified
CPT/HCPCS: 81003; 87077; 87086; 87186; 99213; G0463

== ENCOUNTER 2022-12-31 05:45 | Observation (INO) | payer OTHER, SELFPAY ==
[2022-12-31] VITALS (52 sets, daily range): BP systolic 113–139; BP diastolic 56–98; PULSE 96–133; RESP 15–36; TEMP 36.3–38.4; O2SAT 89–99; BMI 42.5
--- NOTE | ~2022-12-31 | XR_ITS ---
EXAMINATION: XR chest 2V DATE: 12/31/2022 06:39 INDICATION: Shortness of breath and dizziness TECHNIQUE: PA and lateral views of the chest were obtained. COMPARISON: Chest radiograph and CT dated 12/25/2021 FINDINGS: The lungs remain clear with no focal airspace opacities, pulmonary edema, pleural effusion or pneumot horax. The cardiomediastinal silhouette is normal. Mild thoracic spondylosis with chronic mild anteri or wedging of T9 and minimal at T11 and T12. Cholecystectomy clips in right upper quadrant. IMPRESSION: 1. No acute cardiopulmonary disease. Reviewed, dictated and finalized at location A.
--- NOTE | ~2022-12-31 | XR_ITS ---
XR chest 1V portable DATE: 01/01/2023 11:09 INDICATION: Edema. Tachycardia. Hypoxia. Shortness of breath. TECHNIQUE: Portable upright AP chest on January 01, 2023 at 1107 hours COMPARISON: December 31, 2022 CT pulmonary scan FINDINGS: Normal heart size. There may be minimal atelectasis or infiltrate in the lower lung zones. The lungs otherwise appear clear. No pleural effusion or pulmonary mass congestion or pneumothorax is detected. IMPRESSION: Minimal infiltrate or atelectasis in the lower lungs since Reviewed, dictated and finalized at location A.
--- NOTE | ~2022-12-31 | CT_ITS ---
EXAMINATION: CTA chest PE protocol DATE: 12/31/2022 13:55 INDICATION: Shortness of breath. Tachycardia. TECHNIQUE: Computed tomography angiography (CTA) of the chest was performed with 100 mL Omnipaque-350 intravenous contrast timed to evaluate the pulmonary arteries. Coronal maximum intensity projection 3D-reconstructions were created by the technologist. Automated exposure control and iterative reconst ruction technique were employed. The dose-length product was 986.86 mGy-cm. COMPARISON: Chest CT 12/25/2021 FINDINGS: The lungs demonstrate smooth septal thickening and peripheral mild groundglass and airspace opacities, consistent with moderate pulmonary edema. No pleural effusion. The heart size is normal. No pericardial effusion. There is no pulmonary embolus. There are changes of cholecystectomy. There i s mild thoracic spondylosis. There is mild chronic anterior wedging of multiple lower thoracic verteb ral bodies. IMPRESSION: 1. No pulmonary embolus. Sensitivity is mildly decreased by motion artifact. 2. Moderate pulmonary edema. Reviewed, dictated and finalized at location A.
--- NOTE | 2022-12-31 05:53 | ECG_ITS ---
Measurements Intervals [place] Rate: 124 P: 49 RI: 175 QRS: 42 QRSD: 90 T: 23 QT: 311 QTc: 447 Interpretive Statements SINUS TACHYCARDIA BORDERLINE ECG COMPARED TO ECG 12/25/2021 08:13:04 NO SIGNIFICANT CHANGES Electronically Signed On 01-01-2023 14:47:10 CDT by Andrey Singh M.D.
[2022-12-31 06:16] LABS: Basophils Percent Auto 0.2 % (0.2-1.2); Eosinophils Absolute Auto 0.1 K/mm3 (0-0.3); Eosinophils Percent Auto 0.6 % (0-4.4); Hematocrit 42.8 % (37.0-47.0); Hemoglobin 13.7 g/dL (12.0-15.0); Immature Granulocyte Absolute 0.07 K/mm3 (0.00-0.031); Immature Granulocyte Percent A 0.4 % (0-0.5); Lymphocytes Absolute Auto 0.94 K/mm3 (0.9-3.2); Lymphocytes Percent Auto 5.3 % (18.3-44.2); Mean Corpuscular Hemoglobin 27.8 pg (26-34); Mean Corpuscular Volume 86.8 fl (80-100); Mean Platelet Volume 9.5 fl (7.4-10.4); Monocytes Absolute Auto 0.4 K/mm3 (0.1-0.6); Neutrophils Absolute Auto 16.2 K/mm3 (1.3-6.7); Neutrophils Percent Auto 91.5 % (45.5-73.1); Platelet Count Result 374 k/mm3 (150-375); Red Blood Count 4.93 M/mm3 (4.2-5.4); Red Cell Distribution Width 13.8 % (11.5-14.5); White Blood Count 17.7 K/mm3 (4.5-10.0)
[2022-12-31 06:25] LABS: Alanine Aminotransferase 19 U/L (6-35); Albumin Level 4.3 g/dL (3.5-5.1); Alkaline Phosphatase 96 U/L (38-126); Anion Gap 13 mmol/L (8-16); Aspartate Amino Transferase 23 U/L (14-36); Bilirubin,Total 0.5 mg/dL (0.2-1.3); Blood Urea Nitrogen 12 mg/dL (7-17); Calcium 8.8 mg/dL (8.4-10.2); Carbon Dioxide 21 mmol/L (22-30); Chloride 104 mmol/L (98-107); Estimated CRCL calculation 168 ml/min; Estimated Glomerular Filt Rate > 60; Glucose 118 mg/dL (65-110); Sodium 138 mmol/L (137-145)
--- NOTE | 2022-12-31 07:53 | ED.GENADULT ---
HPI - General Adult General Chief complaint: Shortness of Breath/Dyspnea Stated complaint: SOB Time Seen by Provider: 12/31/22 06:53 History of Present Illness HPI narrative: 22-year-old female presented the emergency department for evaluation of shortness of breath that started last night. Patient states yesterday she had no complaints but last night she started having increased shortness of breath at approximately 1 PM. Patient states that the shortness of breath did resolve prior to arrival. Patient took no medications for this. Patient denies any associated chest pain or fever. Patient is a non-smoker and has no prior history of asthma. Patient did start taking a new medication, Macrobid, yesterday for a urinary tract infection but patient has been on this medication previously with no issues. Patient denies any rash or other signs of allergic reaction. Patient has no prior history of PE or DVT. Patient denies any recent car rides plane flights, no history of cancer, no lower extremity pain, and no hormone replacement Related Data Home Medications Medication Instructions Recorded Confirmed levonorgestrel-ethinyl estradiol 1 tablet PO DAILY 10/16/22 12/31/22 0.1 mg-20 mcg tablet (Falmina (28)) Allergies Allergy/AdvReac Type Severity Reaction Status Date / Time kiwi Allergy Mild Anaphylaxis Verified 10/16/22 09:09 codeine Allergy Unknown Rash Verified 10/16/22 09:09 Review of Systems Review of Systems: All systems reviewed & are unremarkable except as noted in HPI and below PMFSH Past Medical History Medical History (Updated 12/31/22 @ 19:03 by Radhames Sainz MD) Anxiety and depression COVID-19 (08/2020) Surgical History Surgical History (Updated 12/31/22 @ 17:22 by Karrie Hurtado PA-C) History of laparoscopic cholecystectomy (12/30/21) History of myringotomy History of tonsillectomy History of wisdom tooth extraction Family History Family History Father No problems noted. Mother PCOS (polycystic ovarian syndrome) Multiple sclerosis Sibling No problems noted. Other Carcinoma of colon Family history of coronary artery disease Hypertension Social History Social History (Updated 12/31/22 @ 17:24 by Karrie Hurtado PA-C) Social History: Surrogate medical decision maker: Margarita Ware, mother. Code status: Full code. Years smoked: 1 Smoking status: Former smoker Tobacco type: cigarettes and e-cigarettes/vaping Second hand tobacco smoke exposure: No Smoking end date: 08/26/20 Additional smoking assessment comments: Stopped vaping in August 2021. Alcohol intake: current Drinks per week: 1 Substance use: never Substance use type: does not use Lack of Transportation: No Lack of Food: Never True Current Housing: I Have Housing Concerned About Future Housing: No Difficulty Paying Gas/Electric Bills: No Difficulty Paying for Meds: No Currently Unemployed: No Education: Associate Degree Difficulty w/ Childcare or Family Care: No Living arrangements: with family Additional living arrangements comments: Lives with parents in [place]. Occupation/Education: occupation Additional occupation/education comments: [employer]. Spiritual care concerns: No Agree to blood products: Yes Exam Narrative: APPEARANCE: Well appearing, no pain, no distress, well-nourished. HEAD: normocephalic, atraumatic. EYES: PERRLA/EOMI, conjunctivae clear. NOSE: Normal no drainage NECK: Supple. No adenopathy, no masses. RESPIRATORY: Airway patent, respirations nonlabored. Clear to auscultation bilaterally, no rales, rhonchi, wheezing. CARDIOVASCULAR: Regular rate and rhythm without murmurs rubs or gallops. ABDOMINAL: Soft, nontender, nondistended, normal bowel sounds MUSCULOSKELETAL: Moves all extremities. Strength/ROM intact, No edema, No calf tenderness. NEURO:
[2022-12-31 08:32] LABS: D Dimer 0.36 ug/mL (<0.48)
[2022-12-31 08:45] LABS: Influenza A QL RT-PCR Negative (Negative); Influenza B QL RT-PCR Negative (Negative); RSV RNA, RT-PCR Negative (Negative); SARS-CoV-2 RNA PCR Negative
[2022-12-31] MEDS: SODIUM CHLORIDE 0.9% IV 1,000 ML 999 ML IV CONT ×2 (09:19→11:18)
[2022-12-31 10:56] LABS: Appearance Urine Cloudy (Clear); Bacteria Urine Rare /hpf; Bilirubin Urine Negative (Negative); Blood Urine Negative (Negative); Color Urine Yellow (Yellow); Glucose Urine UA Negative (Negative); Ketones Urine Negative (Negative); Leukocyte Esterase Ur Negative LEU/UL (Negative); Nitrate Urine Negative (Negative); Non Pathogenic Casts 0-2; Protein Urine Negative (Negative); RBC Urine 0-2 /hpf (0-2); Specific Grav Ur 1.009 (1.001-1.035); Squamous Epithelial Cell Urine Few /hpf (Few); Urobilinogen Urine 0.2 mg/dL (<2.0)
--- NOTE | 2022-12-31 11:15 | PC.NURSE ---
Patient report received from ANNI Durán. All questions answered and care patient assumed.
[2022-12-31 11:30] LABS: Add Urine Microscopic? YES
[2022-12-31] MEDS: ONDANSETRON INJ 4 MG/2 ML VIAL IV PUSH (12:44)
--- NOTE | 2022-12-31 13:12 | PC.NURSE ---
RT at bedside to assess pt.
[2022-12-31] MEDS: ALBUTEROL SULFATE NEB 2.5 MG/3 ML INH INHALATION (13:15)
[2022-12-31 13:20] LABS: Pregnancy On Board Control Positive; Urine Pregnancy Test Negative
--- NOTE | 2022-12-31 13:44 | PC.NURSE ---
Patient off unit to CT.
--- NOTE | 2022-12-31 14:32 | ECHO_ITS ---
Patient Info Name: Radha Ware Age: 22 years : 2000 Gender: Female Ht: 67 in Wt: 270 lbs BSA: 2.47 m2 HR: 123 bpm BP: 127 / 81 mmHg Heart Rhythm: Tachycardia Technical Quality: Fair Exam Date: 12/31/2022 2:54 PM Exam Location: [facility] Card Pulmonary Patient Status: Inpatient Admit Date: 12/31/2022 Staff Ordering Physician: Karrie Hurtado PA-C Petrophysical Engineer: Gracie Doty RDCS Attending Provider: Cale Lepe MD Referring Physician: Bryant FLOREZ; Exam Type: CA echo doppler color flow Study Info Indications - tachycardia, pulmonary edema Complete two-dimensional, color flow and Doppler transthoracic echocardiogram is performed with contrast to opacify the left ventricle and to improve the deliniation of the left ventricle endocardial borders. Contrast/Agitated Saline Contrast/Ag. Saline: Definity Amount: 3.00 ml Administered By: Gracie Doty RDCS Existing IV Access: Yes IV Access Condition: patent with no signs of infiltration Summary 1. Definity contrast administered improved wall motion interpretation. 2. Left ventricular chamber dimension is normal. 3. Left ventricular systolic function is normal, estimated at 60-65%. 4. The left ventricular diastolic function is normal. 5. E/e' 7 is not elevated. Left Ventricle E/e' 7 is not elevated. Definity contrast administered improved wall motion interpretation. Left ventricular chamber dimension is normal. Left ventricular systolic function is normal, estimated at 60-65%. The left ventricular diastolic function is normal. Right Ventricle Right ventricular systolic function is normal and with normal TAPSE 2.2 cm. Right ventricular chamber dimension is normal. Left Atria Left atrial chamber dimension is normal. Right Atria Right atrial chamber dimension is normal. Aortic Valve The aortic valve is probable trileaflet. There is no aortic valve stenosis. There is no aortic valve regurgitation. Pulmonic Valve There is no pulmonic regurgitation. Mitral Valve There is no mitral valve stenosis. There is no mitral valve regurgitation. Tricuspid Valve There is no tricuspid valve regurgitation. Pericardium/Pleural There is no pericardial effusion. Inferior Vena Cava Normal inferior vena cava with >50% collapse upon inspiration consistent with normal right atrial pressure, 5 mmHg. Aorta The aortic root size at the sinus of Valsalva is normal. Left Ventricular Outflow Tract Name Value Normal LVOT 2D LVOT Diameter 2.0 cm LVOT Doppler LVOT Peak Gradient 7 mmHg LVOT Mean Gradient 4 mmHg LVOT VTI 22 cm LVOT VTI/AV VTI Ratio 0.9 LVOT Stroke Volume 65 ml LVOT CO 7.6 l/min LVOT CI 3.1 l/min/m2 Pulmonic Valve Name Value Normal
[2022-12-31 14:54] LABS: NT Pro B Type Natriuretic Pept 179 pg/mL (19.9-100); Troponin I < 0.012 ng/mL (0.000-0.034)
[2022-12-31] MEDS: FUROSEMIDE INJ 40 MG/4 ML VIAL IV PUSH ×2 (15:06→21:47)
[2022-12-31 15:12] LABS: Erythrocyte Sedimentation Rate 19 mm/hr (0-20)
[2022-12-31 15:49] LABS: CRP 8.3 mg/dL (<1.0)
[2022-12-31] MEDS: PERFLUTREN LIPID MICROSPHERES 1.5 ML VIAL DILUTED TO 10 ML TOTAL VOLUME IV PUSH (15:51)
--- NOTE | 2022-12-31 15:52 | IVDEFINITY ---
Prior to administration of IV Definity the patient was educated on the risks and benefits of the imaging enhancing agent including potential adverse side effects. The patient verbalized understanding. Allergies were verified. No exclusion criteria were identified and at least one of the following inclusion criteria were met: 1) physician request, 2) patient technically difficult to image (per the [place] [employer]ch[employer] guidelines of two or more segments not discernable within the apical view), or 3) questionable left ventricular function. ?
[2022-12-31 16:23] LABS: Lactic Acid Reflex 1.7 mmol/L (0.7-2.0); Magnesium 1.9 mg/dL (1.6-2.3)
--- NOTE | 2022-12-31 17:15 | PM.IMHP ---
H&P: HPI History of Present Illness Date/Time: 12/31/22 17:15 Chief Complaint: Shortness of breath. Narrative: This is a very pleasant 22-year-old female without significant medical problems who presented to the emergency department for evaluation of shortness of breath. Patient provides the following history. A couple of days ago she noticed that her urine smelled strong (no other symptoms, specifically no dysuria, urgency, hesitancy, or incontinence) and she was prescribed nitrofurantoin after a urine dipstick done at her doctor's office showed 3+ leukocyte esterase and a moderate amount of blood. She has taken 2 doses of that medication thus far. Last evening she was having hot and cold sweats and sometime in the middle of the night she got up to use the restroom at which time she fell winded. She went back to bed but was feeling short of breath when lying supine and she did not sleep well thereafter. She came into the ER this morning because of the shortness of breath. She was afebrile on arrival with stable blood pressures though she was tachycardic. Her CMP was relatively unremarkable but white blood cell count was elevated at 17.7. Chest x-ray showed no acute cardiopulmonary abnormalities. She was given a L of normal saline mid improvement in her heart rate. Initial plans were for discharge home however she once again became tachycardic and her SpO2 dropped to 90% on room air. She also developed nausea and had 2 episodes of emesis. Chest CTA showed no evidence of pulmonary embolism but did show a moderate amount of pulmonary edema. She was given a dose of furosemide 40 mg and she has since been admitted to the IMU for close evaluation and further workup. She has urinated 3 or 4 times since receiving the Lasix and she feels less short of breath. Her main complaint at this time is that of a diffuse frontal headache which she describes as sharp and shooting in nature associated with mild photophobia. She has also spiked temperature to 101.1? F. She denies neck ache, sinus congestion, sore throat, cough, and diarrhea. She has not had exertional chest pain or pleuritic pain. No known history of thyroid disease. She did not receive a nebulizer treatment in the ED. She denies [id number] supplements, illicit substance use, and significant caffeine use. No personal or family history of venous thromboembolism. She has not had sick contacts. No recent travel. She is a former smoker and did vape until August 2021. No recent blood transfusions. No recent pregnancies or deliveries. Review of Systems Review of Systems: Twelve systems were reviewed and are negative except for as per HPI. [facility] Past Medical History Medical History Anxiety and depression COVID-19 (08/2020) Surgical History Surgical History History of laparoscopic cholecystectomy (12/30/21) History of myringotomy History of tonsillectomy History of wisdom tooth extraction Family History Family History Father Hypertension Mother PCOS (polycystic ovarian syndrome) Multiple sclerosis Sibling No problems noted. Grandparent Family history of coronary artery disease Grandparent Family history of coronary artery disease Other Carcinoma of colon Grandparent Diabetes mellitus DVT (deep venous thrombosis) Social History Social History Social History: Surrogate medical decision maker: Margarita Ware, mother. Code status: Full code. Years smoked: 1 Smoking status: Former smoker Tobacco type: cigarettes and e-cigarettes/vaping Second hand tobacco smoke exposure: No Smoking end date: 08/26/20 Additional smoking assessment comments: Stopped vaping in August 2021. Alcohol intake: current Drinks per week: 1 Substance use: n
--- NOTE | 2022-12-31 17:15 | ADMGEN ---
This patient, Radha Ware, was admitted to IMU Room 212-01. Patient/family oriented to hospital policies and general routines including ID bracelet, bed and alarms, visiting hours, pain management, procedures, bathroom and other care routines, personal items, smoking policy, room service/diet, and visiting hours. Information on how to activate the Rapid Response Team has been discussed. Patient/Family are encouraged to report perceived risks to care and to ask questions if they do not understand what they are told or what they should do.
[2022-12-31 17:46] LABS: Procalcitonin 0.1 ng/mL
[2022-12-31] MEDS: ACETAMINOPHEN 325 MG TABLET 650 MG PO ×2 (17:54→23:56)
[2022-12-31] MEDS: SERTRALINE HCL 50 MG TABLET 100 MG PO (21:42)
[2023-01-01] VITALS (11 sets, daily range): BP systolic 106–131; BP diastolic 70–75; PULSE 74–98; RESP 20; TEMP 35.3–36.3; O2SAT 97–99
[2023-01-01 04:39] LABS: Basophils Percent Auto 0.2 % (0.2-1.2); Eosinophils Absolute Auto 0.4 K/mm3 (0-0.3); Eosinophils Percent Auto 3.9 % (0-4.4); Hematocrit 41.6 % (37.0-47.0); Hemoglobin 13.1 g/dL (12.0-15.0); Immature Granulocyte Absolute 0.04 K/mm3 (0.00-0.031); Immature Granulocyte Percent A 0.4 % (0-0.5); Lymphocytes Percent Auto 7.7 % (18.3-44.2); Mean Corpuscular HGB Conc 31.5 g/dl (32-36); Mean Corpuscular Hemoglobin 27.2 pg (26-34); Mean Corpuscular Volume 86.5 fl (80-100); Mean Platelet Volume 9.9 fl (7.4-10.4); Monocytes Absolute Auto 0.3 K/mm3 (0.1-0.6); Monocytes Percent Auto 2.9 % (2.6-8.5); Neutrophils Absolute Auto 8.8 K/mm3 (1.3-6.7); Neutrophils Percent Auto 84.9 % (45.5-73.1); Platelet Count Result 318 k/mm3 (150-375); Red Blood Count 4.81 M/mm3 (4.2-5.4); Red Cell Distribution Width 13.9 % (11.5-14.5); White Blood Count 10.4 K/mm3 (4.5-10.0)
[2023-01-01 05:03] LABS: Alanine Aminotransferase 17 U/L (6-35); Albumin Level 4.2 g/dL (3.5-5.1); Alkaline Phosphatase 81 U/L (38-126); Anion Gap 10 mmol/L (8-16); Aspartate Amino Transferase 22 U/L (14-36); Bilirubin,Total 0.6 mg/dL (0.2-1.3); Blood Urea Nitrogen 9 mg/dL (7-17); Carbon Dioxide 24 mmol/L (22-30); Chloride 103 mmol/L (98-107); Estimated CRCL calculation 169 ml/min; Estimated Glomerular Filt Rate > 60; Glucose 110 mg/dL (65-110); Magnesium 2.3 mg/dL (1.6-2.3); Potassium 3.4 mmol/L (3.4-5.0); Sodium 137 mmol/L (137-145)
[2023-01-01] MEDS: ACETAMINOPHEN 325 MG TABLET 650 MG PO (08:03)
--- NOTE | 2023-01-01 10:14 | PM.CNCAR ---
Assessment and Plan Assessment and plan (1) Pulmonary edema: Qualifiers: Chronicity: acute Qualified Code(s): J81.0 - Acute pulmonary edema Code(s): J81.1 - Chronic pulmonary edema Status: Acute Assessment and Plan: No evidence for cardiogenic etiology of pulmonary edema. Initial chest x-ray unremarkable, yet subsequent CT angiogram of the chest revealed pulmonary vascular congestion without mention of infiltrate and no pulmonary embolism. Troponin negative, proBNP minimally elevated at 179 but not consistent with primary decompensated heart failure. Echocardiogram is normal with preserved LV systolic and diastolic function without valve pathology. Most likely function of aggressive IV fluid resuscitation, systemic inflammatory reaction resulting in transient hypoxia resolved with IV Lasix and IV antibiotics. This raises the suspicion for possible pulmonary infectious etiology, however, no supporting infiltrate identified thus far. Therefore, I do not feel she requires outpatient cardiovascular follow-up or ongoing diuretic therapy unless symptoms return or become problematic after discharge. She is to follow-up with PCP as soon as possible to discharge. No further cardiac workup indicated at this time. Lengthy discussion had with the patient and friends at bedside. Less likely environmental exposures contribution although this cannot be entirely excluded. (2) Sinus tachycardia: Code(s): R00.0 - Tachycardia, unspecified Status: Acute Assessment and Plan: Sinus tachycardia appears to be compensatory response to systemic inflammatory reaction initially with concern for underlying UTI with possible suspicion for pulmonary infarction as while. Repeat chest x-ray pending. Patient is no longer generally tachycardic except with ambulation overnight. Echocardiogram was normal without valvular heart disease, normal LV size and function and chamber size. BNP was unremarkable 179 not consistent with decompensated heart failure. No evidence acute myocardial ischemia or symptoms highly suggestive that regard. EKG was unremarkable with exception of sinus tachycardia. She is no longer febrile, white blood cell count has markedly improved after receiving IV antibiotics. No evidence for SVT or other pathologic tachyarrhythmia. She is not endorsing symptoms consistent or suggestive of postural orthostatic tachycardia syndrome. (3) Systemic inflammatory response syndrome: Code(s): R65.10 - Systemic inflammatory response syndrome (SIRS) of non-infectious origin without acute organ dysfunction Status: Acute Assessment and Plan: Patient presents with fatigue, leukocytosis with neutrophilic shift, shortness of breath, weakness, tachycardia, and fever consistent with systemic inflammatory response syndrome. No significant evidence for eosinophilic reaction slightly elevated at 0.04 somewhat arguing against her presentation primarily as an allergic reaction to nitrofurantoin, although this cannot be entirely excluded. Leukocytosis with neutrophilic shift significantly improved with IV ceftriaxone and azithromycin consists with bacterial/infectious etiology. Decision with regards to appropriate use of antibiotics defer to primary service. Cultures pending and should be incorporated into management decisions with regards to her discharge as sugar repeat chest x-ray which is pending at this time. (4) Recent urinary tract infection: Code(s): Z87.440 - Personal history of urinary (tract) infections Status: Acute Assessment and Plan: Cultures pending, outpatient urinalysis abnormal prompting use of nitrofurantoin. Patient had a somewhat similar admission December 2021 but with chest pain, mild shortness of breath, leukocytosis and tachycardia after completing treatment for UTI with nitrofurantoin. No documentation of pulmonary edema at that time. She was also found to have inflammation of the
--- NOTE | 2023-01-01 12:37 | PM.DS ---
DS: Admitting Diagnosis Discharge Date January 01, 2023 Admitting Diagnosis Pulmonary edema DS: Discharge Diagnosis Discharge Diagnosis (1) Pulmonary edema: Qualifiers: Chronicity: acute Qualified Code(s): J81.0 - Acute pulmonary edema Code(s): J81.1 - Chronic pulmonary edema Status: Acute (2) Systemic inflammatory response syndrome: Code(s): R65.10 - Systemic inflammatory response syndrome (SIRS) of non-infectious origin without acute organ dysfunction Status: Acute (3) Recent urinary tract infection: Code(s): Z87.440 - Personal history of urinary (tract) infections Status: Acute DS: Summary Hospital Course Hospital Course: Patient is a 22-year-old admitted for shortness of breath hypoxia secondary to pulmonary edema. Presumably from inflammatory reaction from nitrofurantoin. Possibly from pneumonia. Nonetheless patient did have cardiac workup which was essentially normal. Otherwise her workup was normal as well. Patient be discharged on Omnicef for 4 more days. Time Spent with Patient Time attestation: Total time spent providing and/or coordinating discharge services: Exam Narrative: General: alert and oriented Psych: appropriate mood nad affect Eyes: PERRLA Neck: Trachea midline, no new lesions Skin: no changes Lungs: CTA Cardiac: Normal S1,S2, no MGR ABD: soft, nd, nt, nbs Ext: no new lesions, no cce Vasc: Pulses intact DS: Data Data Completed and Pending Labs on day of discharge: Labs from last 24 hours 01/01/23 01/01/23 12/31/22 04:00 04:00 16:09 WBC 10.4 H RBC 4.81 Hgb 13.1 Hct 41.6 MCV 86.5 MCH 27.2 MCHC 31.5 L RDW 13.9 Plt Count 318 MPV 9.9 Immature Gran % (Auto) 0.4 Neut % (Auto) 84.9 H Lymph % (Auto) 7.7 L Divide % (Auto) 2.9 Eos % (Auto) 3.9 Baso % (Auto) 0.2 Lymph # (Auto) 0.80 L Divide # (Auto) 0.3 Eos # (Auto) 0.4 H Baso # (Auto) 0.0 Abs Immat Gran (auto) 0.04 H Absolute Neuts (auto) 8.8 H Absolute Nucleated RBC 0.0 Nucleated RBC % 0.0 ESR Sodium 137 Potassium 3.4 Chloride 103 Carbon Dioxide 24 Anion Gap 10 BUN 9 Creatinine 0.60 L Estim Creat Clear Calc 169 Estimated GFR > 60 Glucose 110 Lactic Acid Calcium 8.0 L Magnesium 2.3 1.9 Total Bilirubin 0.6 AST 22 ALT 17 Alkaline Phosphatase 81 Troponin I C-Reactive Protein NT-Pro-B Natriuret Pep Total Protein 7.0 Albumin 4.2 Procalcitonin TSH (Reflex) Urine Test 12/31/22 12/31/22 12/31/22 16:09 14:47 14:47 WBC RBC Hgb Hct MCV MCH MCHC RDW Plt Count MPV Immature Gran % (Auto) Neut % (Auto) Lymph % (Auto) Divide % (Auto) Eos % (Auto) Baso % (Auto) Lymph # (Auto) Divide # (Auto) Eos # (Auto) Baso # (Auto) Abs Immat Gran (auto) Absolute Neuts (auto) Absolute Nucleated RBC Nucleated RBC % ESR Sodium Potassium Chloride Carbon Dioxide Anion Gap BUN Creatinine Estim Creat Clear Calc Estimated GFR Glucose Lactic Acid 1.7 Calcium Magnesium Total Bilirubin AST ALT Alkaline Phosphatase Troponin I C-Reactive Protein NT-Pro-B Natriuret Pep Cancelled Total Protein Albumin Procalcitonin 0.1 TSH (Reflex) Urine Test 12/31/22 12/31/22 12/31/22 14:47 14:47 14:47 WBC RBC Hgb Hct MCV MCH MCHC RDW Plt Count MPV Immature Gran % (Auto) Neut % (Auto) Lymph % (Auto) Divide % (Auto) Eos % (Auto) Baso % (Auto) Lymph # (Auto) Divide # (Auto) Eos # (Auto) Baso # (Auto) Abs Immat Gran (auto) Absolute Neuts (auto) Absolute Nucleated RBC Nucleated RBC % ESR 19 Sodium Potassium Chloride Carbon Dioxide Anion Gap BUN Creatinine Estim Cr
== END 2023-01-01 13:05 | disposition home or self-care (01) ==
LOC: ANHED 14:35 → ANHIMU 19:03
PROVIDERS: Emergency Medicine; Physician Assistant; Admitting Provider Internal Medicine; Emergency Provider Emergency Medicine; PCP Family Medicine; Visit Provider Chiropractor
DX: J81.1 Chronic pulmonary edema (principal); R65.10 Systemic inflammatory response syndrome (SIRS) of non-infectious origin without acute organ dysfunction; Z87.440 Personal history of urinary (tract) infections; Z20.822 Contact with and (suspected) exposure to COVID-19; F41.9 Anxiety disorder, unspecified; F32.A Depression, unspecified; R00.0 Tachycardia, unspecified; R51.9 Headache, unspecified; D72.829 Elevated white blood cell count, unspecified; F10.90 Alcohol use, unspecified, uncomplicated; Z86.16 Personal history of COVID-19; Z87.891 Personal history of nicotine dependence; Z79.899 Other long term (current) drug therapy
CPT/HCPCS: 36415; 71045; 71046; 71275; 80053; 81001; 81025; 83605; 83735; 83880; 84145; 84443; 84484; 85025; 85380; 85652; 86140; 87040; 87086; 87088; 87637; 93005; 94640; 96361; 96365; 96366; 96367; 96375; 96376; 99285; A9270; C8929; G0378; J0131; J0456; J0696; J1940; J2405; J7030; Q9957; Q9967

== ENCOUNTER 2025-09-12 11:25 | Outpatient (CLI) | payer OTHER, SELFPAY ==
--- NOTE | ~2025-09-12 | XR_ITS ---
EXAM/PROCEDURE: XR hysterosalpingogram HISTORY: FERTILITY TESTING COMPARISON: None available. TECHNIQUE: Fluoroscopic evaluation of hysterosalpingogram Fluoroscopy time: 0.1 minutes DAP: 6.151 day per square centimeter Number of images: 20 Contrast: 20 cc Omnipaque 240 FINDINGS: Uterine cavity appears within normal limits. Prompt filling of both fallopian tubes, with normal appearance of the fimbrial regions. Peritoneal spill is seen on both sides. IMPRESSION: HSG with patent bilateral fallopian tubes and good peritoneal spill. Reviewed, dictated and finalized at location A. 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
== END 2025-09-12 11:26 | disposition home or self-care (01) ==
PROVIDERS: PCP Family Medicine; Visit Provider Obstetrics & Gynecology Gynecology
DX: Z31.41 Encounter for fertility testing (principal)
CPT/HCPCS: 58340; 74740; Q9966